=== PATIENT | male | born 1990 | race Caucasian/White ===

== ENCOUNTER 2016-06-18 14:25 | Inpatient (IN) | payer BC ==
[~2016-06-18] VITALS: Ht 170.2 cm; Wt 75.0 kg
[2016-06-18] MEDS ORDERED: OPTIRAY 350 100 ML VIAL HMH IV ONE (14:26)
[2016-06-18] MEDS ORDERED: DILAUDID 1 MG/ML AMP ONE (16:57)
[2016-06-18] MEDS ORDERED: LIDOCAINE 1% MDV 20 ML ONE (17:02)
[2016-06-18] MEDS ORDERED: ONDANSETRON 4 MG VIAL ONE (17:22)
[2016-06-18] MEDS ORDERED: SODIUM CHLORIDE 0.9% 100 ML IV ONE (17:52)
[2016-06-18] MEDS ORDERED: CEFTRIAXONE 1 GM VIAL ONE (17:52)
[2016-06-18] MEDS ORDERED: BISACODYL EC 5 MG TAB PO PRN (18:20)
[2016-06-18] MEDS ORDERED: PROMETHAZINE 25 MG/ML VIAL IV PRN (18:20)
[2016-06-18] MEDS ORDERED: ALU/MAG/SIM 30 ML UDC PO PRN (18:20)
[2016-06-18] MEDS ORDERED: PHARMACY TO DOSE VANCOMYCIN IV SCH (18:20)
[2016-06-18] MEDS ORDERED: BISACODYL 10 MG SUPP RECTAL PRN (18:20)
[2016-06-18] MEDS ORDERED: MAG HYDROX 30 ML UDC PO PRN (18:20)
[2016-06-18] MEDS ORDERED: SALINE FLUSH 10 ML FLUSH PRN (18:20)
[2016-06-18] MEDS ORDERED: SODIUM CHLORIDE 0.9% 1,000 ML ONE (18:37)
[2016-06-18] MEDS ORDERED: VANCOMYCIN 1,500 MG in SODIUM CHLORIDE 0.9% 250 ML IV ONE (18:40)
[2016-06-18] MEDS ORDERED: ACYCLOVIR IV ONE (18:40)
[2016-06-18] MEDS ORDERED: SODIUM CHLORIDE 0.9% IV ONE (18:40)
[2016-06-18] MEDS ORDERED: CEFTRIAXONE 2 GM in SODIUM CHLORIDE 0.9% 50 ML IV SCH (19:00)
[2016-06-18] MEDS ORDERED: SUMATRIPTAN SUC 50 MG TAB PO PRN (19:00)
[2016-06-18] MEDS ORDERED: MORPHINE 2 MG/ML SYR IV PRN (19:00)
[2016-06-18] MEDS: SALINE FLUSH 10 ML FLUSH SCH (20:00)
[2016-06-18 21:29] VITALS: BP_SYST 140; RESP 18; TEMP 98.2
[2016-06-18 21:31] VITALS: BMI 23.5; BMI 25.1
[2016-06-18] MEDS ORDERED: MISSING DOSE XX ONE (22:00)
[2016-06-18] MEDS: EXCEDRIN EXTRA STR TAB PO PRN (22:18)
[2016-06-18] MEDS: DEXTROSE 5% SALINE 0.45% 1,000 ML IV SCH (22:20)
[2016-06-18 23:19] VITALS: RESP 18
[2016-06-19] MEDS: SODIUM CHLORIDE 0.9% IV SCH ×3 (02:00→18:00)
[2016-06-19] MEDS: ACYCLOVIR IV SCH ×3 (02:00→18:00)
[2016-06-19] MEDS: VANCOMYCIN 1,000 MG in SODIUM CHLORIDE 0.9% 250 ML IV SCH ×3 (04:34→21:03)
[2016-06-19 05:10] VITALS: BP_SYST 120
[2016-06-19] MEDS: SODIUM CHLORIDE 0.9% FLUSH BAG 500 ML IV SCH (06:00)
[2016-06-19] MEDS: PANTOPRAZOLE 40 MG TAB PO SCH (06:36)
[2016-06-19 07:23] VITALS: BP_SYST 128; RESP 16; TEMP 97.7
[2016-06-19] MEDS: SALINE FLUSH 10 ML FLUSH SCH ×2 (08:00→20:00)
[2016-06-19] MEDS: EXCEDRIN EXTRA STR TAB PO PRN ×2 (08:16→16:41)
[2016-06-19] MEDS: CEFTRIAXONE 1 GM in SODIUM CHLORIDE 0.9% 50 ML IV SCH (08:19)
[2016-06-19 11:02] VITALS: BP_SYST 131; RESP 20; TEMP 98.3
[2016-06-19] MEDS: DILAUDID 1 MG/ML AMP IV PRN ×2 (12:34→18:45)
[2016-06-19 15:14] VITALS: BP_SYST 134; RESP 20; TEMP 97.8
[2016-06-19] MEDS: ONDANSETRON 4 MG VIAL IV PRN (15:39)
[2016-06-19] MEDS: DEXTROSE 5% SALINE 0.45% 1,000 ML IV SCH (17:52)
[2016-06-19 19:31] VITALS: BP_SYST 159; RESP 18; TEMP 97.7
[2016-06-19 23:43] VITALS: BP_SYST 135; RESP 18; TEMP 97.8
[2016-06-20] MEDS ORDERED: MISSING DOSE XX ONE ×2 (00:40→02:15)
[2016-06-20] MEDS: DILAUDID 1 MG/ML AMP IV PRN ×4 (02:29→18:57)
[2016-06-20] MEDS: SODIUM CHLORIDE 0.9% IV SCH ×3 (02:39→18:42)
[2016-06-20] MEDS: ACYCLOVIR IV SCH ×3 (02:39→18:42)
[2016-06-20] MEDS: EXCEDRIN EXTRA STR TAB PO PRN (04:39)
[2016-06-20] MEDS: PANTOPRAZOLE 40 MG TAB PO SCH (04:40)
[2016-06-20] MEDS: DEXTROSE 5% SALINE 0.45% 1,000 ML IV SCH (04:41)
[2016-06-20 05:16] VITALS: BP_SYST 132; RESP 20; TEMP 97.6
[2016-06-20] MEDS: SODIUM CHLORIDE 0.9% FLUSH BAG 500 ML IV SCH ×2 (05:24→15:47)
[2016-06-20] MEDS: VANCOMYCIN 1,000 MG in SODIUM CHLORIDE 0.9% 250 ML IV SCH (05:24)
[2016-06-20 07:20] VITALS: BP_SYST 135; RESP 20; TEMP 97.8
[2016-06-20] MEDS: SALINE FLUSH 10 ML FLUSH SCH ×2 (07:41→19:44)
[2016-06-20] MEDS: CEFTRIAXONE 1 GM in SODIUM CHLORIDE 0.9% 50 ML IV SCH (08:56)
[2016-06-20] MEDS: ONDANSETRON 4 MG VIAL IV PRN ×3 (09:08→19:52)
[2016-06-20] MEDS ORDERED: ACETAMIN/BUTALB/CAFF PO PRN (11:10)
[2016-06-20] MEDS: DICLOFENAC 1% GEL 100 GM TOPICAL SCH ×2 (11:20→15:10)
[2016-06-20 11:59] VITALS: BP_SYST 140; RESP 20; TEMP 98.2
[2016-06-20] MEDS: CYCLOBENZAPRINE 10 MG TAB PO SCH ×3 (12:13→19:55)
[2016-06-20] MEDS ORDERED: VANCOMYCIN 1,250 MG in SODIUM CHLORIDE 0.9% 250 ML IV SCH (13:00)
[2016-06-20] MEDS: Ibuprofen 800 MG TAB PO PRN (15:46)
[2016-06-20 16:41] VITALS: BP_SYST 138; RESP 20; TEMP 97.7
[2016-06-20 19:22] VITALS: BP_SYST 119; RESP 16; TEMP 97.6
[2016-06-21] MEDS: SODIUM CHLORIDE 0.9% IV SCH ×3 (03:06→19:49)
[2016-06-21] MEDS: ACYCLOVIR IV SCH ×3 (03:06→19:49)
[2016-06-21] MEDS: Ibuprofen 800 MG TAB PO PRN ×3 (03:18→17:50)
[2016-06-21] MEDS: PANTOPRAZOLE 40 MG TAB PO SCH (06:16)
[2016-06-21] MEDS: DILAUDID 1 MG/ML AMP IV PRN (06:32)
[2016-06-21] MEDS: EXCEDRIN EXTRA STR TAB PO PRN ×2 (07:48→16:12)
[2016-06-21 07:53] VITALS: BP_SYST 127; RESP 20; TEMP 97.8
[2016-06-21] MEDS: SALINE FLUSH 10 ML FLUSH SCH ×2 (10:18→19:50)
[2016-06-21] MEDS: CEFTRIAXONE 1 GM in SODIUM CHLORIDE 0.9% 50 ML IV SCH (10:18)
[2016-06-21] MEDS: CYCLOBENZAPRINE 10 MG TAB PO SCH ×3 (10:19→20:59)
[2016-06-21 11:44] VITALS: BP_SYST 148; RESP 20; TEMP 97.8
[2016-06-21] MEDS: ONDANSETRON 4 MG VIAL IV PRN (12:33)
[2016-06-21] MEDS ORDERED: MAGNEVIST 15ML IV ONE (12:59)
[2016-06-21 15:53] VITALS: BP_SYST 142; RESP 20; TEMP 98
[2016-06-21 15:54] VITALS: RESP 16; TEMP 98
[2016-06-21 19:57] VITALS: BP_SYST 145; RESP 18; TEMP 97.9
[2016-06-22] MEDS: ACYCLOVIR IV SCH ×2 (02:43→12:05)
[2016-06-22] MEDS: SODIUM CHLORIDE 0.9% IV SCH ×2 (02:43→12:05)
[2016-06-22] MEDS: Ibuprofen 800 MG TAB PO PRN ×3 (02:43→18:14)
[2016-06-22 03:59] VITALS: BP_SYST 128; RESP 18; TEMP 97.3
[2016-06-22] MEDS: SODIUM CHLORIDE 0.9% FLUSH BAG 500 ML IV SCH (04:53)
[2016-06-22] MEDS: EXCEDRIN EXTRA STR TAB PO PRN ×2 (04:54→14:34)
[2016-06-22] MEDS: PANTOPRAZOLE 40 MG TAB PO SCH (04:54)
[2016-06-22 07:12] VITALS: BP_SYST 131; RESP 20; TEMP 97.9
[2016-06-22] MEDS ORDERED: CEFTRIAXONE 1 GM in SODIUM CHLORIDE 0.9% 50 ML IV SCH (09:00)
[2016-06-22] MEDS: SALINE FLUSH 10 ML FLUSH SCH ×2 (09:22→20:12)
[2016-06-22] MEDS: CYCLOBENZAPRINE 10 MG TAB PO SCH ×3 (09:23→20:13)
[2016-06-22] MEDS: ONDANSETRON 4 MG VIAL IV PRN (10:31)
[2016-06-22] MEDS ORDERED: MISSING DOSE XX ONE ×2 (11:00→17:45)
[2016-06-22] MEDS ORDERED: ACETAMIN/BUTALB/CAFF PO PRN (11:15)
[2016-06-22 11:29] VITALS: BP_SYST 149; RESP 20; TEMP 98.4
[2016-06-22] MEDS: TOPIRAMATE 25 MG TAB PO SCH ×2 (12:05→20:14)
[2016-06-22] MEDS: ACETAMIN/BUTALB/CAFF PO PRN ×3 (12:14→20:14)
[2016-06-22 15:10] VITALS: BP_SYST 141; RESP 20; TEMP 97.9
[2016-06-22 19:42] VITALS: BP_SYST 130; RESP 20; TEMP 97.9
[2016-06-23] MEDS: SODIUM CHLORIDE 0.9% FLUSH BAG 500 ML IV SCH (04:15)
[2016-06-23] MEDS: PANTOPRAZOLE 40 MG TAB PO SCH (06:36)
[2016-06-23] MEDS: ACETAMIN/BUTALB/CAFF PO PRN ×3 (06:37→15:14)
[2016-06-23 07:23] VITALS: BP_SYST 135; RESP 20; TEMP 97.3
[2016-06-23] MEDS: CYCLOBENZAPRINE 10 MG TAB PO SCH ×2 (08:26→16:27)
[2016-06-23] MEDS: TOPIRAMATE 25 MG TAB PO SCH (08:26)
[2016-06-23] MEDS: SALINE FLUSH 10 ML FLUSH SCH (08:26)
[2016-06-23] MEDS ORDERED: MISSING DOSE XX ONE (10:00)
[2016-06-23] MEDS: Ibuprofen 800 MG TAB PO PRN (10:01)
[2016-06-23] MEDS: EXCEDRIN EXTRA STR TAB PO PRN (10:39)
[2016-06-23 11:24] VITALS: BP_SYST 132; RESP 20; TEMP 98.1
[2016-06-23] MEDS: ONDANSETRON 4 MG VIAL IV PRN (11:30)
[2016-06-23] MEDS ORDERED: Ibuprofen 400 MG TAB PO PRN (13:55)
[2016-06-23 15:41] VITALS: BP_SYST 120; RESP 20; TEMP 97.9
[2016-06-23 18:19] VITALS: BP_SYST 120; RESP 20; TEMP 97.9
== END 2016-06-23 19:00 | disposition home or self-care (01) | DRG 103 ==
LOC: ENRESERVTM → ENRESERVDT → ER 14:25 → ENPENDDIS 18:18 → EMR 18:18 → 4NT 21:24
PROVIDERS: ADMIT Internal Medicine; ATTEND Internal Medicine
PROC: 009U3ZX Drainage of Spinal Canal, Percutaneous Approach, Diagnostic (ICD-10-PCS; principal; 2016-06-18)
DX: G43.109 Migraine with aura, not intractable, without status migrainosus (principal); J33.8 Other polyp of sinus; R11.2 Nausea with vomiting, unspecified; M47.9 Spondylosis, unspecified
CPT/HCPCS: 36415; 70450; 70553; 72141; 80048; 80053; 80202; 80307; 81001; 82553; 82945; 83735; 84157; 84439; 84443; 84484; 85025; 85652; 86141; 87071; 87205; 87498; 87529; 87798; 89051; 93005; 94799; 95819; 96361; 96365; 96366; 96367; 96375; 99223; 99232; 99233; 99239